=== PATIENT | female | born 1985 | race Caucasian/White ===

== ENCOUNTER 2021-07-20 19:49 | Emergency (ER) | payer MEDICAID ==
[~2021-07-20] VITALS: Ht 154.9 cm; Wt 89.0 kg
[2021-07-20 20:14] VITALS: BP 168/99
[2021-07-20] MEDS ORDERED: LIDOCAINE HCL/PF 1% 10 MG/ML 5ML VIAL INFIL ONE (21:30)
[2021-07-20] MEDS ORDERED: BACITRACIN ZINC OINT UDPKT TOP ONE (21:30)
[2021-07-20] MEDS ORDERED: TETANUS, DIPHTHERIA, PERTUSSIS VAC/PF 0.5ML (>10YR OLD) IM ONE (21:30)
[2021-07-20] MEDS ORDERED: ACETAMINOPHEN 325MG TABLET PO ONE (21:30)
[2021-07-20] MEDS ORDERED: IBUP-2028 MT (22:49)
== END 2021-07-20 23:12 | disposition home or self-care (01) ==
LOC: ER 19:49
DX: S61.212A Laceration without foreign body of right middle finger without damage to nail, initial encounter (principal); W26.8XXA Contact with other sharp object(s), not elsewhere classified, initial encounter; Y93.89 Activity, other specified; Y92.89 Other specified places as the place of occurrence of the external cause; Y99.8 Other external cause status
CPT/HCPCS: 12001; 73130; 90471; 90715; 99283; A4217; J3490; Z7610

== ENCOUNTER 2024-02-12 14:38 | Emergency (ER) | payer SELFPAY ==
[~2024-02-12] VITALS: Ht 154.9 cm; Wt 89.0 kg
[~2024-02-12 14:38] MED LIST: IBUP-2028 MT
[2024-02-12 14:44] VITALS: O2SAT 100
[2024-02-12] MEDS ORDERED: LABETALOL HCL VIAL 20 MG/4 ML VIAL IV ONE (15:15)
[2024-02-12] MEDS: LABETALOL 5MG/ML SYR 20 MG/4 ML SYRINGE IV NR (15:23)
[2024-02-12 15:29] LABS: BASOPHILS % 0.7 % (0.0-2.0); EOSINOPHILS % 3.5 % (0.0-5.0); HEMOGLOBIN. 13.2 g/dL (12.0-16.0); LYMPHOCYTES % 27.2 % (20.0-50.0); MEAN CORPUSCULAR HEMOGLOBIN 27.5 pg (28.0-32.0); MEAN CORPUSCULAR VOLUME 80.9 fL (81.0-99.0); MONOCYTES % 4.8 % (2.0-8.0); NEUTROPHILS % 63.8 % (40.0-76.0); PLATELET 509 x1000/uL (130-400); RED BLOOD CELL COUNT 4.82 mill/uL (4.2-5.4); RED CELL DISTRIBUTION WIDTH 14.5 % (11.6-14.6); WHITE BLOOD COUNT 10.5 x1000/uL (4.5-11.0)
[2024-02-12 15:34] LABS: CHLORIDE 108 mEq/L (98-107); POTASSIUM 3.3 mEq/L (3.5-5.1); SODIUM 138 mEq/L (136-145)
[2024-02-12 15:35] LABS: CALCIUM 9.2 mg/dL (8.7-10.4); CARBON DIOXIDE 26 mEq/L (21-32)
[2024-02-12 15:40] LABS: CREATININE 0.6 mg/dL (0.6-1.0); GLUCOSE 133 mg/dL (70-105); UREA NITROGEN BLOOD 8 mg/dL (9-23)
[2024-02-12 15:42] LABS: TROPONIN I HIGH SENSITIVITY 13 ng/L (3.0-34)
[2024-02-12 15:46] LABS: CLARITY URINE CLEAR (CLEAR); COLOR URINE YELLOW (YELLOW); GLUCOSE URINE NEGATIVE (NEGATIVE); KETONES URINE NEGATIVE (NEGATIVE); LEUKOCYTE ESTERASE URINE TRACE (NEGATIVE); NITRITE URINE NEGATIVE (NEGATIVE); OCCULT BLOOD URINE NEGATIVE (NEGATIVE); PH URINE 7.5 (4.5-8.0); PROTEIN URINE NEGATIVE (NEGATIVE); SPECIFIC GRAVITY URINE 1.008 (1.005-1.030); UROBILINOGEN URINE 0.2 E.U./dL (0.2-1.0)
[2024-02-12 16:04] LABS: BACTERIA URINE 1+; RBC URINE 0-2 /hpf (0-2); SQUAMOUS EPITHELIAL CELL URINE FEW /lpf (RARE/1+); WBC URINE 0-2 /hpf (0-2)
[2024-02-12] MEDS ORDERED: AMLO10TA80 MT (17:22)
[2024-02-12 17:35] VITALS: BP 168/89; PULSE 84; RESP 16; TEMP 98.2
== END 2024-02-12 17:36 | disposition home or self-care (01) ==
LOC: ER 14:38
DX: I95.89 Other hypotension (principal); F43.89 Other reactions to severe stress; I10 Essential (primary) hypertension; Z98.890 Other specified postprocedural states
CPT/HCPCS: 80048; 81003; 81025; 83880; 85025; 84484; 36415; 71045; 93005; 96374; 99285; J3490; Z7610 ×2